=== PATIENT | female | born 1990 | race African-American/Black ===

== ENCOUNTER 2025-01-06 09:04 | Inpatient (IN) | payer BC ==
[~2025-01-06] VITALS: Ht 165.1 cm; Wt 158.3 kg
[2025-01-06] MEDS: SODIUM CHLORIDE 0.9% (SEPSIS BOLUS) IV ONE (10:20)
[2025-01-06] MEDS: ACETAMINOPHEN 325MG TABLET PO STA (10:21)
[2025-01-06] MEDS: CEFTRIAXONE 1GM/50ML 50 ML IV ONE (10:27)
[2025-01-06 10:33] LABS: HEMATOCRIT. 34.8 % (36.0-48.0); HEMOGLOBIN. 11.8 g/dL (12.0-16.0); MEAN CORPUSCULAR HEMOGLOBIN 22.9 pg (28.0-32.0); MEAN CORPUSCULAR HGB CONC 33.8 g/dL (31.0-37.0); MEAN CORPUSCULAR VOLUME 67.9 fL (81.0-99.0); MEAN PLATELET VOLUME 8.7 fl (7.4-10.4); PLATELET 250 x1000/uL (130-400); RED BLOOD CELL COUNT 5.12 mill/uL (4.2-5.4); RED CELL DISTRIBUTION WIDTH 23.3 % (11.6-14.6); WHITE BLOOD COUNT 16.2 x1000/uL (4.5-11.0)
[2025-01-06 10:35] LABS: DIFFERENTIAL COMMENT 1
[2025-01-06 10:42] LABS: CHLORIDE 98 mEq/L (98-107); POTASSIUM 3.3 mEq/L (3.5-5.1); SODIUM 134 mEq/L (136-145)
[2025-01-06 10:43] LABS: CALCIUM 9.5 mg/dL (8.7-10.4); CARBON DIOXIDE 28 mEq/L (21-32)
[2025-01-06 10:44] LABS: INR 1.1; PROTHROMBIN TIME 11.9 sec (9.6-11.0)
[2025-01-06 10:48] LABS: CREATININE 0.8 mg/dL (0.6-1.0); GLUCOSE 106 mg/dL (70-105)
[2025-01-06 10:49] LABS: UREA NITROGEN BLOOD 8 mg/dL (9-23)
[2025-01-06 10:50] LABS: ALANINE AMINOTRANSFERASE 17 IU/L (10-49); ALBUMIN 4.1 g/dL (3.2-4.8); ASPARTATE AMINOTRANSFERASE 18 IU/L (<34); CREATINE KINASE 100 IU/L (34-145)
[2025-01-06 10:51] LABS: BILIRUBIN DIRECT 0.5 mg/dL (<=3.0); BILIRUBIN TOTAL 1.4 mg/dL (0.1-1.0); PROTEIN TOTAL 8.3 g/dL (6.0-8.3)
[2025-01-06 10:57] LABS: TROPONIN I HIGH SENSITIVITY < 4 ng/L (3.0-34)
[2025-01-06 11:03] LABS: HCG SCREEN NEGATIVE
[2025-01-06] MEDS: AZITHROMYCIN 500MG/250ML 250 ML IV ONE (11:44)
[2025-01-06 13:15] LABS: TROPONIN I HIGH SENSITIVITY < 4 ng/L (3.0-34)
[2025-01-06] MEDS: KETOROLAC 15MG/ML VIAL IV ONE (13:37)
[2025-01-06] MEDS ORDERED: IOHEXOL-350 100 ML BOTTLE ONE (13:46)
[2025-01-06 14:05] LABS: CLARITY URINE CLEAR (CLEAR); COLOR URINE YELLOW (YELLOW); GLUCOSE URINE NEGATIVE (NEGATIVE); KETONES URINE 1+ (NEGATIVE); LEUKOCYTE ESTERASE URINE NEGATIVE (NEGATIVE); NITRITE URINE NEGATIVE (NEGATIVE); OCCULT BLOOD URINE NEGATIVE (NEGATIVE); PROTEIN URINE NEGATIVE (NEGATIVE); SPECIFIC GRAVITY URINE 1.029 (1.005-1.030); UROBILINOGEN URINE 0.2 E.U./dL (0.2-1.0)
[2025-01-06 14:13] LABS: ANISOCYTOSIS 2+; MICROCYTOSIS 2+; PLATELET ESTIMATE NORMAL
[2025-01-06 14:58] VITALS: BP 118/47; PULSE 108; RESP 18; TEMP 39; O2SAT 98
[2025-01-06 15:05] LABS: INFLUENZA TYPE A Presumptive Negative (Pres. Neg.)
[2025-01-06 15:06] LABS: INFLUENZA TYPE B Presumptive Negative (Pres. Neg.); RESPIRATORY SYNCYTIAL VIRUS Not Detected (Not Detectd)
[2025-01-06] MEDS ORDERED: LOSA50TA41 PO (15:18)
[2025-01-06] MEDS ORDERED: FERR-71 PO (15:18)
[2025-01-06] MEDS ORDERED: VITAMIN D (15:18)
[2025-01-06] MEDS ORDERED: METO-385 PO (15:18)
[2025-01-06] MEDS ORDERED: HYDR25TA PO (15:18)
[2025-01-06] MEDS ORDERED: ERGO1250 PO (15:20)
[2025-01-06 15:40] VITALS: BP 118/47; PULSE 108; RESP 18; TEMP 39
[2025-01-06 16:00] VITALS: BP 133/58; PULSE 128; RESP 22; TEMP 39.8; O2SAT 97
[2025-01-06] MEDS: ACETAMINOPHEN 325MG TABLET PO PRN (16:44)
[2025-01-06] MEDS: GUAIFENESIN 600MG ER TABLET PO SCH (16:49)
[2025-01-06] MEDS: LOSARTAN 50 MG TABLET PO SCH (16:49)
[2025-01-06] MEDS: METOPROLOL SUCCINATE 50MG ER TABLET PO SCH (16:49)
[2025-01-06 20:00] VITALS: BP 106/87; PULSE 84; RESP 20; TEMP 38.2; O2SAT 98
[2025-01-06] MEDS ORDERED: MAGNESIUM/ALUMINUM HYDROXIDE/SIMETHICONE 30ML UDC PO PRN (21:30)
[2025-01-06] MEDS ORDERED: ZOLPIDEM TARTRATE 5MG TABLET PO PRN (21:30)
[2025-01-06] MEDS ORDERED: ONDANSETRON HCL 4MG/2ML INJ IV PRN (21:30)
[2025-01-06] MEDS ORDERED: DIPHENHYDRAMINE 50MG/ML VIAL IV PRN (21:30)
[2025-01-06] MEDS ORDERED: ACETAMINOPHEN 325MG TABLET PO PRN (21:30)
[2025-01-06] MEDS: SODIUM CHLORIDE 0.9% 3ML FLUSH IVF SCH (22:45)
[2025-01-07] VITALS (7 sets, daily range): BP systolic 105–125; BP diastolic 38–74; PULSE 97–109; RESP 18–20; TEMP 37.2–39.3; O2SAT 96–100
[2025-01-07] MEDS: POTASSIUM CHLORIDE 20MEQ TABLET SR PO NR (00:06)
[2025-01-07] MEDS: DEXT 5%/0.45% NACL KCL 10MEQ/L 1,000 ML IV SCH (04:48)
[2025-01-07] MEDS: ACETAMINOPHEN 325MG TABLET PO PRN (06:30)
[2025-01-07] MEDS: CEFTRIAXONE 1GM/50ML 50 ML IV SCH (10:16)
[2025-01-07] MEDS: AZITHROMYCIN 500MG/250ML 250 ML IV SCH (10:16)
[2025-01-07] MEDS: IPRATROPIUM/ALBUTEROL 0.5-3(2.5)MG/3ML NEB HHN PRN (15:01)
[2025-01-07] MEDS: IBUPROFEN 400MG TABLET PO PRN (16:27)
[2025-01-08] VITALS (9 sets, daily range): BP systolic 108–125; BP diastolic 39–72; PULSE 83–106; RESP 18–30; TEMP 36.2–38.9; O2SAT 96–98
[2025-01-08] MEDS: PROMETHAZINE/DEXTROMETHORPHAN 6.25-15MG/5ML PO PRN (03:10)
[2025-01-08 07:56] LABS: CHLORIDE 107 mEq/L (98-107); POTASSIUM 3.3 mEq/L (3.5-5.1); SODIUM 137 mEq/L (136-145)
[2025-01-08 07:57] LABS: CALCIUM 8.6 mg/dL (8.7-10.4); CARBON DIOXIDE 24 mEq/L (21-32)
[2025-01-08 08:02] LABS: CREATININE 0.7 mg/dL (0.6-1.0); GLUCOSE 124 mg/dL (70-105)
[2025-01-08 08:03] LABS: UREA NITROGEN BLOOD < 5 mg/dL (9-23)
[2025-01-08 11:41] LABS: BASOPHILS % 0.3 % (0.0-2.0); EOSINOPHILS % 1.4 % (0.0-5.0); HEMATOCRIT. 30.2 % (36.0-48.0); LYMPHOCYTES % 19.7 % (20.0-50.0); MEAN CORPUSCULAR HEMOGLOBIN 22.8 pg (28.0-32.0); MEAN CORPUSCULAR HGB CONC 33.2 g/dL (31.0-37.0); MEAN CORPUSCULAR VOLUME 68.7 fL (81.0-99.0); MEAN PLATELET VOLUME 8.6 fl (7.4-10.4); MONOCYTES % 6.2 % (2.0-8.0); NEUTROPHILS % 72.4 % (40.0-76.0); PLATELET 174 x1000/uL (130-400); RED BLOOD CELL COUNT 4.39 mill/uL (4.2-5.4); RED CELL DISTRIBUTION WIDTH 23.7 % (11.6-14.6)
[2025-01-08 11:46] LABS: DIFFERENTIAL COMMENT 1
[2025-01-08 11:48] LABS: ADD RBC MORPHOLOGY NO
[2025-01-08] MEDS: KETOROLAC 30MG/ML VIAL IV PRN (12:41)
[2025-01-08] MEDS: POTASSIUM CHLORIDE 20MEQ TABLET SR PO NR (15:22)
[2025-01-08] MEDS: MAGNESIUM 2 G PREMIX 50 ML IV NR (15:27)
[2025-01-09] VITALS (8 sets, daily range): BP systolic 104–153; BP diastolic 51–72; PULSE 80–108; RESP 18–28; TEMP 36.3–37.4; O2SAT 97–100
[2025-01-09 12:27] LABS: PHOSPHORUS 2.3 mg/dL (2.5-4.9)
[2025-01-09] MEDS: PIPERACILLIN/TAZO 3.375G/50ML 50 ML IV SCH (14:30)
[2025-01-10] VITALS (7 sets, daily range): BP systolic 110–124; BP diastolic 52–68; PULSE 71–90; RESP 18–19; TEMP 36.4–36.8; O2SAT 97–100
[2025-01-10 07:46] LABS: BASOPHILS % 0.8 % (0.0-2.0); CARBON DIOXIDE 26 mEq/L (21-32); CHLORIDE 106 mEq/L (98-107); EOSINOPHILS % 3.6 % (0.0-5.0); HEMATOCRIT. 26.6 % (36.0-48.0); LYMPHOCYTES % 24.2 % (20.0-50.0); MEAN CORPUSCULAR HEMOGLOBIN 22.5 pg (28.0-32.0); MEAN CORPUSCULAR HGB CONC 33.8 g/dL (31.0-37.0); MEAN CORPUSCULAR VOLUME 66.7 fL (81.0-99.0); MEAN PLATELET VOLUME 8.5 fl (7.4-10.4); MONOCYTES % 8.7 % (2.0-8.0); NEUTROPHILS % 62.7 % (40.0-76.0); PLATELET 209 x1000/uL (130-400); POTASSIUM 3.7 mEq/L (3.5-5.1); RED BLOOD CELL COUNT 3.99 mill/uL (4.2-5.4); RED CELL DISTRIBUTION WIDTH 23.3 % (11.6-14.6); SODIUM 138 mEq/L (136-145); WHITE BLOOD COUNT 8.6 x1000/uL (4.5-11.0)
[2025-01-10 07:47] LABS: CALCIUM 8.8 mg/dL (8.7-10.4)
[2025-01-10 07:51] LABS: ADD RBC MORPHOLOGY NO; CREATININE 0.6 mg/dL (0.6-1.0); DIFFERENTIAL COMMENT 1; GLUCOSE 94 mg/dL (70-105)
[2025-01-10 07:52] LABS: UREA NITROGEN BLOOD 5 mg/dL (9-23)
[2025-01-10 07:54] LABS: PHOSPHORUS 3.1 mg/dL (2.5-4.9)
[2025-01-10] MEDS: FOLIC ACID 1MG TABLET PO SCH (18:01)
== END 2025-01-10 18:33 | disposition home or self-care (01) | DRG 871 ==
LOC: ER 09:04 → EDBEDREQ 10:18 → EDBEDREQSVC 13:29 → EDBEDREQ 13:29 → 8WST 14:08
PROVIDERS: ADMIT Internal Medicine; ATTEND Internal Medicine
PROC: 5A09357 Assistance with Respiratory Ventilation, Less than 24 Consecutive Hours, Continuous Positive Airway Pressure (ICD-10-PCS; principal; 2025-01-08)
PROC: 5A09357 Assistance with Respiratory Ventilation, Less than 24 Consecutive Hours, Continuous Positive Airway Pressure (ICD-10-PCS; 2025-01-09)
DX: A41.9 Sepsis, unspecified organism (principal); J18.9 Pneumonia, unspecified organism; Z68.43 Body mass index [BMI] 50.0-59.9, adult; I10 Essential (primary) hypertension; E87.6 Hypokalemia; Z20.822 Contact with and (suspected) exposure to COVID-19; D57.1 Sickle-cell disease without crisis; E66.9 Obesity, unspecified; E83.42 Hypomagnesemia; J45.909 Unspecified asthma, uncomplicated; Z82.49 Family history of ischemic heart disease and other diseases of the circulatory system; Z87.01 Personal history of pneumonia (recurrent); G47.36 Sleep related hypoventilation in conditions classified elsewhere
CPT/HCPCS: 36415; 71045; 71275; 80048; 80076; 81003; 82550; 83605; 83735; 83880; 84100; 84145; 84484; 84703; 85025; 85651; 87420; 87426; 87804; 93005; 94070; 94640; 94660; 94664; 98960; 99291; J0456; J0696; J1885; J2543; J3475; J7030; Q9967